=== PATIENT | female | born 1970 | race Native Hawaiian/Other Pacific Islander ===

== ENCOUNTER 2016-12-04 13:34 | Outpatient (CLI) | payer BC | END 2016-12-04 19:19 | disposition home or self-care (01) | LOC: US 13:34 | DX: N63 Unspecified lump in breast (principal) ==

== ENCOUNTER 2018-01-06 15:12 | Outpatient (CLI) | payer BC | END 2018-01-06 21:59 | disposition home or self-care (01) | LOC: MAMMO 15:12 | DX: Z12.31 Encounter for screening mammogram for malignant neoplasm of breast (principal) ==

== ENCOUNTER 2018-03-05 10:12 | Outpatient (CLI) | payer BC | END 2018-03-05 20:23 | disposition home or self-care (01) | LOC: US 10:12 | DX: N60.02 Solitary cyst of left breast (principal) ==

== ENCOUNTER 2019-02-03 15:44 | Outpatient (CLI) | payer BC | END 2019-02-03 22:33 | disposition home or self-care (01) | LOC: MAMMO 15:44 | DX: Z12.31 Encounter for screening mammogram for malignant neoplasm of breast (principal) ==

== ENCOUNTER 2020-03-02 13:20 | Outpatient (CLI) | payer BC | END 2020-03-02 22:25 | disposition home or self-care (01) | LOC: MAMMO 13:20 | DX: Z12.31 Encounter for screening mammogram for malignant neoplasm of breast (principal) ==

== ENCOUNTER → 2020-12-04 | Outpatient (CLI) | payer BC, OTHER | LOC: INF 08:09 | PROVIDERS: ATTEND Internal Medicine | DX: Z23 Encounter for immunization (principal) | CPT/HCPCS: 96372 ==

== ENCOUNTER 2020-12-28 08:24 | Outpatient (CLI) | payer BC, OTHER | END 2020-12-28 23:59 | disposition home or self-care (01) | LOC: INF 08:24 | PROVIDERS: ATTEND Internal Medicine | DX: Z23 Encounter for immunization (principal) | CPT/HCPCS: 96372 ==

== ENCOUNTER 2021-04-05 09:19 | Outpatient (CLI) | payer BC | END 2021-04-05 19:44 | disposition home or self-care (01) | LOC: MAMMO 09:19 | PROVIDERS: ATTEND Obstetrics & Gynecology | DX: Z12.31 Encounter for screening mammogram for malignant neoplasm of breast (principal) ==

== ENCOUNTER 2022-04-11 09:04 | Outpatient (CLI) | payer BC | END 2022-04-11 19:04 | disposition home or self-care (01) | LOC: MAMMO 09:04 | PROVIDERS: ATTEND Nurse Practitioner Family | DX: Z12.31 Encounter for screening mammogram for malignant neoplasm of breast (principal) ==

== ENCOUNTER 2022-12-12 14:38 | Outpatient (CLI) | payer BC | END 2022-12-12 19:38 | disposition home or self-care (01) | LOC: MAMMO 14:38 | PROVIDERS: ATTEND Nurse Practitioner Family | DX: N63.20 Unspecified lump in the left breast, unspecified quadrant (principal) | CPT/HCPCS: G0279 ==

== ENCOUNTER 2023-05-14 15:15 | Outpatient (CLI) | payer BC | END 2023-05-14 19:00 | disposition home or self-care (01) | LOC: MAMMO 15:15 | PROVIDERS: ATTEND Obstetrics & Gynecology | DX: Z12.31 Encounter for screening mammogram for malignant neoplasm of breast (principal) ==